=== PATIENT | male | born 1975 | race Caucasian/White ===

== ENCOUNTER 2019-01-15 18:50 | Emergency (ER) | payer BC ==
[2019-01-15 18:57] VITALS: BP 141/80
--- NOTE | 2019-01-15 19:24 | EDM.PDOC ---
ED HPI GENERAL MEDICAL PROBLEM - General Chief Complaint: General Stated Complaint: CHEST WALL PAIN Time Seen by Provider: 01/15/19 19:22 Source of Information: Reports: Patient History Limitations: Reports: No Limitations - History of Present Illness INITIAL COMMENTS - FREE TEXT/NARRATIVE: This patient is a 44 year old male that presents to the ER. Patient reports for 3 days having right anterior upper chest wall pain. Patient reports it feels like he needs to pop his chest. Patient reports if chiropractor was open today thats where he would be. Patient reports it feels like a rib or chest is tight. Patient reports its painful to lift objects and run and change certain positions. Patient reports these things make the pain worse. Does not recall a specific injury. Onset Date: 01/12/19 Duration: Day(s): (3) Location: Reports: Chest Severity: Mild Improves with: Reports: Rest Worsens with: Reports: Movement Associated Symptoms: Reports: No Other Symptoms. Denies: Confusion, Chest Pain , Cough, cough w sputum, Diaphoresis, Fever/Chills, Headaches, Loss of Appetite , Malaise, Nausea/Vomiting, Rash, Seizure, Shortness of Breath, Syncope, Weakness Right Upper Chest Pain Score (Numeric/FACES): 1 - Related Data Allergies Allergy/AdvReac Type Severity Reaction Status Date / Time No Known Allergies Allergy Verified 01/15/19 18:58 Home Meds: Home Meds Cetirizine HCl [Zyrtec] 10 mg PO DAILY 06/22/15 [History] Lisinopril 10 mg PO ACDINNER 06/22/15 [History] Omeprazole 20 mg PO DAILY 06/22/15 [History] Sertraline HCl 50 mg PO DAILY 06/22/15 [History] Past Medical History HEENT History: Reports: Allergic Rhinitis Cardiovascular History: Reports: Hypertension Gastrointestinal History: Reports: GERD Psychiatric History: Reports: Anxiety Social & Family History - Tobacco Use Smoking Status *Q: Never Smoker - Caffeine Use Caffeine Use: Reports: Coffee - Recreational Drug Use Recreational Drug Use: No ED ROS GENERAL - Review of Systems Review Of Systems: See Below Constitutional: Reports: No Symptoms HEENT: Reports: No Symptoms Respiratory: Reports: No Symptoms Cardiovascular: Reports: No Symptoms Endocrine: Reports: No Symptoms GI/Abdominal: Reports: No Symptoms : Reports: No Symptoms Musculoskeletal: Reports: Other (right upper chest) Skin: Reports: No Symptoms Neurological: Reports: No Symptoms Psychiatric: Reports: No Symptoms Hematologic/Lymphatic: Reports: No Symptoms Immunologic: Reports: No Symptoms ED EXAM, GENERAL - Physical Exam Exam: See Below Exam Limited By: No Limitations General Appearance: Alert, WD/WN, No Apparent Distress Eye Exam: Bilateral Eye: Normal Inspection, PERRL Ears: Normal External Exam, Normal Canal, Hearing Grossly Normal, Normal TMs Ear Exam: Bilateral Ear: Auricle Normal, Canal Normal, TM normal Nose: Normal Inspection, Normal Mucosa, No Blood Throat/Mouth: Normal Inspection, Normal Lips, Normal Teeth, Normal Gums, Normal Oropharynx, Normal Voice, No Airway Compromise Head: Atraumatic, Normocephalic Neck: Normal Inspection, Supple, Non-Tender, Full Range of Motion Respiratory/Chest: No Respiratory Distress, Lungs Clear, Normal Breath Sounds, No Accessory Muscle Use, Other (Mild tenderness right anterior chest. Pain worse with big deep breaths and twisting of the trunk. Pain is easily manipulated on exam. ) Cardiovascular: Normal Peripheral Pulses, Regular Rate, Rhythm, No Edema, No Gallop, No JVD, No Murmur, No Rub Peripheral Pulses: 2+: Radial (L), Radial (R) Extremities: Normal Inspection, Normal Range of Motion, Non-Tender, No Pedal Edema, Normal Capillary Refill Neurological: Alert, Oriented Psychiatric: Normal Affect, Normal Mood Skin Exam: Warm, Dry, Intact, Normal Color, No Rash Lymphatic: No Adenopathy Course - Vital Signs Last Recorded V/S: Last Vital Signs Temp 98.5 F 01/15/19 18:55 Pulse 50 L 01/15/19 18:55 Resp 16 01/15/19 18:55 BP 141/80 H 01/15/19 18:55 Pulse Ox 99 01/15/19 18:55 - Orders/Labs/Meds Orders: Active Orders 24 hr Category Date Time Status Chest 2V [CR] Stat Exams 01/15/19 19:02 Ordered - Radiology Interpretation Free Text/Narrative:: CXR: No fx, no infiltrates, no cardiac edema. - Re-Assessments/Exams Free Text/Narrative Re-Assessment/Exam: 01/15/19 19:45 Patient reports he feels like he just needs to pop his chest. Patient presentation may represent rib subluxation. Departure - Departure Time of Disposition: 19:38 Disposition: Home, Self-Care 01 Condition: Good Clinical Impression: Muscle strain of anterior chest wall - Discharge Information *PRESCRIPTION DRUG MONITORING PROGRAM REVIEWED*: Not Applicable *COPY OF PRESCRIPTION DRUG MONITORING REPORT IN PATIENT PATRICIA: Not Applicable Referrals: Oliver Leavitt MD [Primary Care Provider] - Forms: ED Department Discharge Additional Instructions: Go to Chiropractor tomorrow morning Followup with your primary care provider as needed Return to the ER for worsening of condition or any emergent concerns Motrin over the counter May take your muscle relaxer you have at home May use heat or Ice to the area Rest No heavy lifting or Running if makes pain worse - My Orders Last 24 Hours: My Active Orders 01/15/19 19:02 Chest 2V [CR] Stat - Assessment/Plan Last 24 Hours: My Active Orders 01/15/19 19:02 Chest 2V [CR] Stat Plan: PLEASE SEE RN NOTE FOR PFSH.
== END 2019-01-15 19:43 | disposition home or self-care (01) ==
LOC: CC.ED 18:50
DX: S29.011A Strain of muscle and tendon of front wall of thorax, initial encounter (principal); X58.XXXA Exposure to other specified factors, initial encounter
CPT/HCPCS: 71046; 99283-25